=== PATIENT | female | born 1995 | race Caucasian/White ===

== ENCOUNTER 2017-01-24 15:30 | Inpatient (IN) | payer MEDICAID ==
[~2017-01-24] VITALS: Ht 154.9 cm; Wt 46.3 kg
--- NOTE | 2017-01-24 16:00 | NUR ---
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
--- NOTE | 2017-01-24 16:39 | NUR ---
MSE COMPLETED BY DR. MAGDALENO
[2017-01-24 16:56] LABS: BASOPHIL % 0.5 % (0-2); PLATELET COUNT 217 x10^3mcL (130-400); RED CELL DISTRIBUTION WIDTH 13.8 % (11.5-14.5)
[2017-01-24 16:57] LABS: microscopic required? YES; urine erythrocyte TRACE (NEGATIVE)
--- NOTE | 2017-01-24 17:23 | NUR ---
PT TAKEN TO ULTRASOUND VIA W/C AND BACK TO TREATMENT AREA WITH NO INCIDENCE
--- NOTE | 2017-01-24 18:10 | NUR ---
PT RESTING IN BED IN A POSITION OF COMFORT WITH FAMILY MEMBER AT BEDSIDE, DENIES ANY PAIN AT THIS TIME, PT REPORTS "JUST COMES AND GOES" PT RESP EVEN AND UNLABORED, IN NO ACUTE DISTRESS, CALL LIGHT WITHIN REACH, WILL CONTINUE TO MONITOR
--- NOTE | 2017-01-24 18:17 | NUR ---
DR. MAGDALENO AT BEDSIDE DISCUSSING POC WITH PT AND PTS FAMILY MEMBER AT BEDSIDE AT THIS TIME
[2017-01-24] MEDS ORDERED: PRENATAL MULTI1 EAC2 PO (18:31)
--- NOTE | 2017-01-24 18:45 | NUR ---
PT TEARFUL AT THIS TIME REGARDING RESULTS OF ULTRASOUND, PT SIGNFICANT OTHER AND FAMILY MEMBER AT BEDSIDE, MEDICATION ADMINISTERED PER MD ORDER, PLEASE SEE EMAR, PT TOLERATED WELL, PT RESP EVEN AND UNLABORED, IN NO ACUTE DISTRESS, INST PT TO PRESS CALL LIGHT FOR ANY ASSISTANCE NEEDED, WILL CONTINUE TO MONITOR
--- NOTE | 2017-01-24 19:14 | NUR ---
REPORT GIVEN TO GABBIE SLATER TELE FLOOR TO ASSUME CARE OF PT AFTER TRANSPORT TO TELE FLOOR
[2017-01-24 19:32] VITALS: BP 129/79
--- NOTE | 2017-01-24 19:57 | NUR ---
REC'D AAOX4, SPEECH CLEAR. DENIES H/A. C/O DIZZINESS. ON RA, NO SOB NOTED. IV SITE WNL. AMBULATORY WITH STEADY GAIT. ON TELE 20. NSR. ORIENTED TO ROOM AND SURROUNDINGS. CALL LIGHT WITHIN REACH, PROVIDED REPORT TO PRINCE CARTWRIGHT FOR CONTINUITY OF CARE.
--- NOTE | 2017-01-24 19:57 | NUR ---
RECEIVED REPORT FROM BENY CARTWRIGHT. PT IS ALERT/ORIENTED X4. NO C/O PAIN. C/O MILD DIZZINESS. PT STATES NO VAGINAL DISCHARGE AT THIS TIME. LUNGS ARE CLEAR THROUGHOUT. BOWEL SOUNDS ARE HYPOACTIVE. WILL CONTINUE TO MONITOR.
[2017-01-24 20:08] LABS: AMPHETAMINE QUAL UR NONE DETECTED (NEG <=1000)
[2017-01-24 20:11] LABS: CHOLESTEROL/HDL RATIO 2.3; MAGNESIUM 2.2 mg/dL (1.8-2.4); PHOSPHOROUS 4.1 mg/dL (2.5-4.9)
[2017-01-24 20:16] LABS: T3 TOTAL 1.14 ng/mL
[2017-01-24 20:17] LABS: FREE T4 1.04 ng/dL (0.76-1.46); FREE THYROXINE INDEX 2.7 ug/dL (1.4-4.5); T4(THYROXINE) 8.5 ug/dL (4.7-13.3)
--- NOTE | 2017-01-24 21:20 | NUR ---
DR Jenifer AYOUB AND MYSELF IN ROOM. DR AYOUB EXPLAINING THE SURG
[2017-01-24 21:32] LABS: CALCIUM 8.9 mg/dL (8.5-10.1); CARBON DIOXIDE 24.2 mmol/L (21-32); CHLORIDE SERUM 103 mmol/L (98-107); CREATININE SERUM 0.8 mg/dL (0.6-1.0); GFR1 > 60 mL/min; GLUCOSE SERUM 75 mg/dL (74-106); SODIUM SERUM 140 mmol/L (136-145)
--- NOTE | 2017-01-24 21:34 | NUR ---
JAMEY FROM OR PHONED; REPORT GIVEN. INFORMED HER NO ORDER FOR KARLA BATH AND NO CONSENT ORDER OF YET.
--- NOTE | 2017-01-24 21:38 | NUR ---
KARLA BATH GIVEN TO PT
--- NOTE | 2017-01-24 21:57 | NUR ---
PT TO OR VIA GURMOBILE ACCOMPANIED BY 2 OR NURSES AND PT VISITORS. NO C/O PAIN.
--- NOTE | 2017-01-24 22:54 | NUR ---
JAMEY FROM OR PHONED AND GAVE REPORT
[2017-01-24 23:29] VITALS: BP 111/61
--- NOTE | 2017-01-24 23:29 | NUR ---
PT BACK FROM THE OR. PT C/O LOWER ABD AND VAG PAIN. SMALL AMOUNT OF BLOOD NOTED ON FEROZ PAD. PT STATES PAIN LEVEL IS A 9/10. PT REFUSING PAIN MED AT THIS TIME. PT CRYING SAYING "MY BABY MY BABY". EMOTIONAL SUPPORT GIVEN. TELE #20, SR. VS; BP; 111/61, MAP; 83, HR; 77, TEMP; 99.1, RESP; 18, O2 SAT ON RA; 100%. VISITORS IN ROOM. WILL CONTINUE TO MONITOR.
[2017-01-24 23:44] VITALS: BP 101/58
[2017-01-24 23:59] VITALS: BP 103/61
[2017-01-25 00:14] VITALS: BP 104/53
[2017-01-25 00:29] VITALS: BP 101/50
--- NOTE | 2017-01-25 01:30 | NUR ---
PT SLEEPING. NO DISTRESS NOTED. WILL CONTINUE TO MONITOR.
--- NOTE | 2017-01-25 03:36 | NUR ---
PT SLEEPING.NO DISTRESS NOTED.WILL CONTINUE TO MONITOR.
--- NOTE | 2017-01-25 05:31 | NUR ---
PT SLEPT IN LONG INTERVALS SINCE COMING BACK FROM THE OR. WILL CONTINUE TO MONITOR.
[2017-01-25 05:52] VITALS: BP 97/42
[2017-01-25 06:46] LABS: CARBON DIOXIDE 23.4 mmol/L (21-32); CHLORIDE SERUM 106 mmol/L (98-107); CREATININE SERUM 0.6 mg/dL (0.6-1.0); GFR1 > 60 mL/min; GLUCOSE SERUM 73 mg/dL (74-106); MAGNESIUM 1.7 mg/dL (1.8-2.4); PHOSPHOROUS 3.9 mg/dL (2.5-4.9); POTASSIUM SERUM 3.7 mmol/L (3.5-5.1); SODIUM SERUM 137 mmol/L (136-145)
[2017-01-25 07:05] LABS: BASOPHIL % 0.4 % (0-2); PLATELET COUNT 148 x10^3mcL (130-400); RED CELL DISTRIBUTION WIDTH 13.7 % (11.5-14.5)
--- NOTE | 2017-01-25 07:20 | NUR ---
RECEIVED PT. IN BED A/A/O X4. NO SOB, NO N/V NOTED. DENIES ANY PAIN AT THIS TIME. PT. STATED SHE IS STILL HAVING A SMALL AMT. OF VAGINAL BLEEDING. NS RUNNING AT 100 CC/HR. VIA IV H/L AT R AC. SCD TO BLE MAINTAINED. BED IN LOW POS., CALL LIGHT WITHIN REACH. SIDE RAILS UP X3.
--- NOTE | 2017-01-25 08:11 | NUR ---
DR. STEINER, DO INTERNS, CHARGE NURSE, AND ATTENDING NURSE AT BEDSIDE. CAREPLAN DISCUSSED WITH PT. ALL QUESTIONS ANSWERED.
[2017-01-25] MEDS ORDERED: NORCO1 TA2 PO (09:09)
--- NOTE | 2017-01-25 09:10 | NUR ---
TELE. MONITOR #20 REMOVED AND RETURNED TO TELE. MONITOR STATION. PT. IS NOW MED-SURG STATUS PER PHYSICIAN'S ORDER.
[2017-01-25] MEDS ORDERED: MOT600 PO (09:11)
[2017-01-25] MEDS ORDERED: COL100 PO (09:39)
[2017-01-25 11:01] VITALS: BP 97/45
--- NOTE | 2017-01-25 13:00 | NUR ---
CALLED AND REPORTED MG LEVEL (1.7) TO DR. TOSCANO (DO HOME SCHOOL COORDINATOR). NO FURTHER ORDER RECEIVED AT THIS TIME.
[2017-01-25 13:30] VITALS: BP 100/65
--- NOTE | 2017-01-25 14:30 | NUR ---
D/C HOME INSTRUCTIONS GIVEN TO PT. BY BENY SUAREZ RN. WITH VERBALIZED UNDERSTANDING. IV H/L TO R AC REMOVED. PRESCRIPTION GIVEN. COPY OF CD RADIOLOGY IMAGES GIVEN TO PT.
--- NOTE | 2017-01-25 14:45 | NUR ---
PT. IS BEING DISCHARGED IN STABLE CONDITION VIA WHEELCHAIR. ALL BELONGINGS SENT HOME WITH PT. UPON DISCHARGE.
== END 2017-01-25 15:01 | disposition home or self-care (01) | DRG 544 ==
LOC: ED 15:30 → MU 18:32 → DU 18:32 → MU 01-25 09:12
PROVIDERS: Emergency Medicine; ADMIT Family Medicine
PROC: 10D17ZZ Extraction of Products of Conception, Retained, Via Natural or Artificial Opening (ICD-10-PCS; principal; 2017-01-25)
DX: O02.1 Missed abortion (principal); Z68.1 Body mass index [BMI] 19.9 or less, adult; Z3A.09 9 weeks gestation of pregnancy
CPT/HCPCS: 83880; 84439; J0690; J1885; J2250; J2704; J7030; J7120

== ENCOUNTER 2017-01-27 01:01 | Inpatient (IN) | payer MEDICAID ==
[~2017-01-27] VITALS: Ht 154.9 cm; Wt 49.7 kg
[~2017-01-27 01:01] MED LIST: COL100 PO; MOT600 PO; NORCO1 TA2 PO; PRENATAL MULTI1 EAC2 PO
[2017-01-27 02:04] LABS: BASOPHIL % 0.5 % (0-2); PLATELET COUNT 145 x10^3mcL (130-400); RED CELL DISTRIBUTION WIDTH 13.6 % (11.5-14.5)
[2017-01-27 02:12] LABS: CALCIUM 8.6 mg/dL (8.5-10.1); CHLORIDE SERUM 104 mmol/L (98-107); CREATININE SERUM 0.7 mg/dL (0.6-1.0); GFR1 > 60 mL/min; GLUCOSE SERUM 80 mg/dL (74-106); POTASSIUM SERUM 3.9 mmol/L (3.5-5.1); SODIUM SERUM 139 mmol/L (136-145)
[2017-01-27 02:16] LABS: ALBUMIN 3.5 g/dL (3.4-5.0); ALKALINE PHOSPHATASE 53 U/L (46-116); ALT/SGPT 20 U/L (14-59); AST/SGOT 19 U/L (15-37); BILIRUBIN TOTAL 0.66 mg/dL (0.20-1.00)
[2017-01-27 03:57] VITALS: BP 115/73
[2017-01-27 04:30] LABS: MAGNESIUM 1.7 mg/dL (1.8-2.4); PHOSPHOROUS 4.3 mg/dL (2.5-4.9)
[2017-01-27 04:32] LABS: CHOLESTEROL/HDL RATIO 2.4; T3 TOTAL 1.2 ng/mL
[2017-01-27 04:39] LABS: FREE T4 1.14 ng/dL (0.76-1.46); FREE THYROXINE INDEX 3.2 ug/dL (1.4-4.5); T4(THYROXINE) 10.1 ug/dL (4.7-13.3)
[2017-01-27 10:30] VITALS: BP 99/56
[2017-01-27 13:50] VITALS: BP 97/63
[2017-01-27] MEDS ORDERED: NOR10T PO (15:58)
[2017-01-27 16:09] VITALS: BP 97/63
[2017-01-27 17:22] VITALS: BP 98/60
== END 2017-01-27 17:59 | disposition home or self-care (01) | DRG 564 ==
LOC: ED 01:01 → DU 03:08
PROVIDERS: Emergency Medicine; ADMIT Family Medicine
DX: O03.39 Incomplete spontaneous abortion with other complications (principal); E83.42 Hypomagnesemia; D64.9 Anemia, unspecified; R31.9 Hematuria, unspecified
CPT/HCPCS: 83880; 84439; J1885; J2405; J7030

== ENCOUNTER 2017-01-28 17:12 | Emergency (ER) | payer MEDICAID ==
[~2017-01-28] VITALS: Ht 154.9 cm; Wt 46.0 kg
[~2017-01-28 17:12] MED LIST changes: +NOR10T PO
[2017-01-28 17:16] VITALS: BP 99/75
== END 2017-01-28 18:21 | disposition left against medical advice (07) ==
LOC: ED 17:12
DX: Z53.21 Procedure and treatment not carried out due to patient leaving prior to being seen by health care provider (principal)

== ENCOUNTER 2017-05-26 22:42 | Emergency (ER) | payer MEDICAID ==
[2017-05-27 01:04] LABS: BASOPHIL % 0.4 % (0-2); PLATELET COUNT 214 x10^3mcL (130-400); RED CELL DISTRIBUTION WIDTH 13.7 % (11.5-14.5)
[2017-05-27 01:59] LABS: microscopic required? NO
[2017-05-27 02:08] LABS: UA SPECIFIC GRAVITY 1.015 (1.005-1.035); urine erythrocyte NEGATIVE (NEGATIVE)
[2017-05-27 02:52] VITALS: BP 101/63
== END 2017-05-27 02:52 | disposition home or self-care (01) ==
LOC: ED 22:42
PROVIDERS: Specialist
DX: O26.891 Other specified pregnancy related conditions, first trimester (principal); R10.2 Pelvic and perineal pain; Z3A.12 12 weeks gestation of pregnancy
CPT/HCPCS: 36415